=== PATIENT | male | born 1990 | race Caucasian/White ===

== ENCOUNTER 2023-09-14 08:14 | Outpatient (CLI) | payer OTHER, SELFPAY ==
--- NOTE | 2023-09-14 08:16 | XR_ITS ---
FINAL REPORT CLINICAL HISTORY: knee pain x 13 yrs. 3 yrs of PT with no help. FINDINGS: Left knee Three views were obtained. There is no acute fracture or dislocation. The joint spaces appear normal. No soft tissue abnormality is identified. IMPRESSION: No acute process. Reviewed, Interpreted and Dictated by Wes Aragon MD Transcribed by Jessa Silva Authenticated and . [facility]
--- NOTE | 2023-09-14 08:16 | XR_ITS ---
FINAL REPORT CLINICAL HISTORY: bilateral knee pain x 13 yrs, most pain in right knee. 3 yrs of PT with no help. FINDINGS: Right knee Three views were obtained. There is no acute fracture or dislocation. The joint spaces appear normal. No soft tissue abnormality is identified. IMPRESSION: No acute process. Reviewed, Interpreted and Dictated by Wes Aragon MD Transcribed by Jessa Silva Authenticated and [facility]
== END 2023-09-14 23:59 | disposition home or self-care (01) ==
LOC: RAD 08:14
PROVIDERS: Visit Provider Physician Assistant
DX: M25.562 Pain in left knee (principal); M25.561 Pain in right knee
CPT/HCPCS: 73562

== ENCOUNTER 2023-10-04 12:39 | Outpatient (CLI) | payer OTHER, SELFPAY ==
[2023-10-04 12:52] LABS: Basophils # 0.1 K/mm3 (0-0.2); Basophils % 0.8 % (0.1-2.0); Eosinophils # 0.6 K/mm3 (0.0-0.4); Eosinophils % 6.9 % (0.1-12.0); Hematocrit 44.1 % (42.0-52.0); Hemoglobin 14.6 g/dL (14.1-18.0); Lymphocytes # 2.1 K/mm3 (0.7-4.5); Mean Corpuscular Hemoglobin 28.9 pg (27.0-31.2); Mean Corpuscular Volume 87.7 fl (80-94); Mean Platelet Volume 8.8 fl (7.4-10.4); Monocytes # 0.3 K/mm3 (0.1-1.0); Neutrophils # 5.4 K/mm3 (1.8-7.8); Neutrophils % 63.3 % (37.0-80.0); Platelet Count 198 K/mm3 (142-424); Red Blood Count 5.03 M/mm3 (4.60-6.20); Red Cell Distribution Width 13.7 % (11.5-17.5); White Blood Count 8.6 K/mm3 (4.8-10.8)
[2023-10-04 14:09] LABS: Thyroid Stimulating Hormone 1.43 uIU/mL (0.465-4.68)
[2023-10-05 10:13] LABS: LH 7.8 mIU/mL (1.7-8.6); Prolactin 8.2 ng/mL (3.9-22.7); Sex Hormone Binding Globulin 23.8 nmol/L (16.5-55.9); Testosterone,Total 293 ng/dL (264-916)
[2023-10-05 16:23] LABS: FSH 5.4 mIU/mL (1.5-12.4)
[2023-10-07 04:11] LABS: Testosterone,Free 6.5 pg/mL (8.7-25.1)
[2023-11-15 11:16] LABS: Dihydrotestosterone DHT 15
== END 2023-10-04 23:59 | disposition home or self-care (01) ==
PROVIDERS: Visit Provider Urology
DX: N52.9 Male erectile dysfunction, unspecified (principal); N62 Hypertrophy of breast; R53.83 Other fatigue
CPT/HCPCS: 36415; 82626; 82670; 83001; 83002; 84146; 84270; 84402; 84403; 84443; 85025

== ENCOUNTER 2023-10-07 13:14 | Outpatient (CLI) | payer OTHER, SELFPAY ==
--- NOTE | 2023-10-07 13:15 | MM_ITS ---
PROCEDURE INFORMATION: Exam: Bilateral Diagnostic Breast Tomosynthesis Exam date and time: 10/07/2023 1:00 PM Age: 33 years old Clinical indication: Bilateral breast thickening; Additional info: Enlarged breast TECHNIQUE: Imaging protocol: Bilateral Diagnostic tomosynthesis and 2D mammography including computer-aided detection (CAD) when performed. Unilateral or bilateral exam. COMPARISON: No relevant prior studies available. FINDINGS: MAMMOGRAPHY: Breast composition: The breasts are entirely fatty. There is no breast tissue identified. Breast mammogram findings: There is no stellate mass, architectural distortion or suspicious microcalcifications in either breast to suggest malignancy. No skin thickening or axillary adenopathy. IMPRESSION: Bilateral pseudo gynecomastia. No breast tissue is seen. ASSESSMENT: BI-RADS Category 1: Negative
== END 2023-10-07 23:59 | disposition home or self-care (01) ==
LOC: RAD 13:15
PROVIDERS: PCP Urology; Visit Provider Urology
DX: N62 Hypertrophy of breast (principal); N52.9 Male erectile dysfunction, unspecified; R53.83 Other fatigue
CPT/HCPCS: 77062; 77066; G0279

== ENCOUNTER 2024-02-01 16:55 | Outpatient (CLI) | payer OTHER, SELFPAY ==
[2024-02-01 16:35] LABS: Microscopic, Urine URINE MICROSCOPIC (MICROSCOPIC)
[2024-02-01 17:13] LABS: Appearance,Urine CLEAR (Clear); Bilirubin,Urine Negative (Negative); Blood, Urine Negative (Negative); Color,Urine YELLOW (Yellow); Glucose,Urine (UA) Negative (Negative); Ketones,Urine Negative (Negative); Leukocyte Esterase,Urine Negative (Negative); Nitrate,Urine Negative (Negative); Protein,Urine 1+ (Negative); Specific Gravity, Urine 1.025 (1.005-1.030); Urobilinogen,Urine 0.2 EU/dl (0.2)
[2024-02-01 17:32] LABS: Basophils % 0.5 % (0.1-2.0); Eosinophils # 0.2 K/mm3 (0.0-0.4); Eosinophils % 2.7 % (0.1-12.0); Hematocrit 44.3 % (42.0-52.0); Hemoglobin 14.9 g/dL (14.1-18.0); Lymphocytes # 2.3 K/mm3 (0.7-4.5); Lymphocytes % 26.3 % (10-50); Mean Corpuscular HGB Conc 33.7 g/dL (31.8-35.4); Mean Corpuscular Hemoglobin 28.2 pg (27.0-31.2); Mean Corpuscular Volume 83.7 fl (80-94); Mean Platelet Volume 9.7 fl (7.4-10.4); Monocytes # 0.2 K/mm3 (0.1-1.0); Monocytes % 2.7 % (1.7-9.3); Neutrophils # 5.8 K/mm3 (1.8-7.8); Neutrophils % 67.8 % (37.0-80.0); Platelet Count 236 K/mm3 (142-424); Red Blood Count 5.29 M/mm3 (4.60-6.20); Red Cell Distribution Width 13.4 % (11.5-17.5); White Blood Count 8.6 K/mm3 (4.8-10.8)
[2024-02-01 17:33] LABS: Alanine Aminotransferase 41 U/L (12-78); Albumin Level 4.5 g/dl (3.5-5.0); Albumin/Globulin Ratio 1.8 (1.1-1.8); Alkaline Phosphatase 45 U/L (38-126); Anion Gap 12.8 mEq/L (5-15); Aspartate Amino Transferase 31 U/L (17-59); Bilirubin,Total 0.8 mg/dl (0.2-1.3); Blood Urea Nitrogen 13 mg/dl (9-20); Calcium 9.3 mg/dl (8.4-10.2); Carbon Dioxide 28 mmol/L (22.0-30.0); Chloride 104 mmol/L (98-107); Chol/HDL Ratio 4.6 (1-3.5); Cholesterol 179 mg/dl (140-200); Estimated Glomerular Filt Rate 96 ml/min (>60); GFR (African American) 116 ML/MIN (>60); Globulin 2.5 g/dL (1.3-3.2); Glucose 117 mg/dl (74-100); HDL Cholesterol 39 mg/dl (40-60); Potassium 3.8 mmoL/L (3.5-5.1); Sodium 141 mmol/L (136-145); Triglycerides 168 mg/dl (30-150); VLDL Cholesterol 34 mg/dL (0-40)
[2024-02-01 17:42] LABS: Hemoglobin A1C 5.4 % (4.0-6.0)
[2024-02-01 17:44] LABS: Direct LDL Cholesterol 128.86 mg/dL (100-129)
[2024-02-01 17:49] LABS: Free T4 (Free Thyroxine) 1.02 ng/dl (0.78-2.19)
[2024-02-01 18:04] LABS: Thyroid Stimulating Hormone 0.94 uIU/mL (0.465-4.68)
[2024-02-01 18:41] LABS: Iron 56 ug/dL (49-181)
[2024-02-01 18:52] LABS: Total Iron Binding Capacity 316 ug/dL (261-462)
[2024-02-01 18:55] LABS: Bacteria,Urine 3+ /lpf; RBC,Urine TNTC #/hpf (0-3)
[2024-02-01 18:56] LABS: Mucus,Urine 3+ /lpf
[2024-02-01 19:17] LABS: Ferritin 102 ng/ml (17.9-464)
[2024-02-01 20:09] LABS: Vitamin B12 805 pg/mL (239-931)
[2024-02-01 22:20] LABS: HIV (1&2) Antibody Rapid NONREACTIVE (NONREACTIVE)
[2024-02-03 07:20] LABS: HCV Ab Non Reactive (Non Reactive)
[2024-02-14 16:19] LABS: Testosterone, Total, LC/MS 272 ng/dL (.)
== END 2024-02-01 23:59 | disposition home or self-care (01) ==
LOC: LAB.DROPOF 16:55
PROVIDERS: PCP Nurse Practitioner Family; Visit Provider Nurse Practitioner Family
DX: E78.5 Hyperlipidemia, unspecified (principal); R79.89 Other specified abnormal findings of blood chemistry; I10 Essential (primary) hypertension; E55.9 Vitamin D deficiency, unspecified; E66.9 Obesity, unspecified; R53.83 Other fatigue; E29.1 Testicular hypofunction; E53.8 Deficiency of other specified B group vitamins; G47.33 Obstructive sleep apnea (adult) (pediatric); Z11.59 Encounter for screening for other viral diseases; Z13.1 Encounter for screening for diabetes mellitus; Z11.4 Encounter for screening for human immunodeficiency virus [HIV]
CPT/HCPCS: 80050; 80053; 80061; 81001; 82306; 82607; 82728; 83036; 83540; 83550; 84156; 84403; 84439; 84443; 85025; 86803; 87086; 87389

== ENCOUNTER 2024-04-27 13:19 | Outpatient (CLI) | payer OTHER, SELFPAY ==
[2024-04-27 13:16] LABS: Coronavirus 19, PCR Not Detected (NotDetected); Human Rhinovirus Not Detected (NotDetected); Influenza A, PCR Not Detected (NotDetected); Influenza B, PCR Not Detected (NotDetected); Respiratory Syncytial Virus Not Detected (NotDetected)
== END 2024-04-27 23:59 | disposition home or self-care (01) ==
LOC: LAB.DROPOF 13:19
PROVIDERS: PCP Nurse Practitioner Family; Visit Provider Nurse Practitioner Family
DX: J98.8 Other specified respiratory disorders (principal); R06.00 Dyspnea, unspecified
CPT/HCPCS: 87631